=== PATIENT | female | born 1950 | race Caucasian/White ===

== ENCOUNTER 2016-08-10 13:16 | Emergency (ER) | payer OTHER, BC ==
[2016-08-10] MEDS ORDERED: IPRATROPIUM/ALBUTEROL 3 ML DEYVIAL IH ONE (13:49)
[2016-08-10 13:51] VITALS: RESP 18; O2SAT 95
[2016-08-10] MEDS ORDERED: ALBUTEROL 3 ML DEYVIAL IH ONE (14:33)
[2016-08-10] MEDS ORDERED: predniSONE 20 MG TAB PO ONE (14:33)
--- NOTE | 2016-08-10 14:37 | UCPHY ---
H & P Time Seen by Provider: 08/10/16 13:35 Patient Type: New HPI/ROS: 65-year-old female presents complaining of cough, nasal congestion fevers and chills for approximately 5 days she was seen at an outside hospital 3 days ago and given 1 dose of a steroid and sent home on a cough medicine. She states the cough medicine made her feel bad and she is not able to take it. Past Medical/Surgical History: Hypertension Hyperlipidemia Social History: Alcohol socially, denies drug use Smoking Status: Unknown if ever smoked Physical Exam: 65-year-old female alert and oriented no acute distress Alert and oriented nontoxic appearance, no acute distress afebrile Atraumatic normocephalic Extraocular muscles intact, anicteric Nares mild yellowish discharge Oropharynx mild erythema no tonsillar swelling no exudate no uvular deviation, tolerating own secretions Neck supple no lymphadenopathy Lungs clear to auscultation bilaterally, scattered wheeze Heart regular rate and rhythm Abdomen normoactive bowel sounds soft nontender Extremities no cyanosis clubbing or edema Skin no rash Constitutional: Initial Vital Signs Temperature (C) 36.6 C 08/10/16 13:44 Heart Rate 64 08/10/16 13:44 Respiratory Rate 18 08/10/16 13:44 Blood Pressure 191/87 H 08/10/16 13:44 O2 Sat (%) 95 08/10/16 13:44 O2 Delivery Mode Room Air Allergies/Adverse Reactions: codeine Allergy (Verified 08/10/16 13:36) Home Medications: Medication Instructions Recorded AZITHROMYCIN [Z-PACK] 250 mg PO DAILY #6 tab 08/10/16 Albuterol [Ventolin Hfa Inhaler] 2 puffs IH Q4 PRN #0 mdi 08/10/16 Amlodipine Besylate 08/10/16 Benzonatate [Tessalon Pearles (RX)] 100 mg PO TID PRN #30 cap 08/10/16 LORAZEPAM 08/10/16 Lovastatin 08/10/16 Metoprolol Succinate 08/10/16 PRILOSEC 08/10/16 Valsartan 08/10/16 methylPREDNISolone [Medrol Dose 1 each PO AD #1 ea 08/10/16 Frank] Medical Decision Making - Diagnostics Imaging: Chest x-ray negative for pneumonia ED Course/Re-evaluation: Patient seen and evaluated for cough cold symptoms Differential diagnosis URI, bronchitis, pneumonia Chest x-ray negative for pneumonia Impression Bronchitis with bronchospasm Plan Z-Frank Albuterol Methylprednisolone Tessalon Perles - Data Points Medications Given: Discontinued Medications Albuterol (Proventil Neb) 3 ml IH EDNOW ONE Stop: 08/10/16 14:34 Last Admin: 08/10/16 14:40 Dose: 3 ml Albuterol/Ipratropium (Duoneb) 3 ml IH EDNOW ONE Stop: 08/10/16 13:50 Last Admin: 08/10/16 13:55 Dose: 3 ml Prednisone (Prednisone) 60 mg PO EDNOW ONE Stop: 08/10/16 14:34 Last Admin: 08/10/16 14:38 Dose: 60 mg Departure - Departure Disposition: Home, Routine, Self-Care Clinical Impression: Bronchitis, Laryngitis Condition: Good Instructions: Laryngitis (ED), Acute Bronchitis (ED) Referrals: Racquel Laureano MD [Primary Care Provider] - As per Instructions Prescriptions: Albuterol [Ventolin Hfa Inhaler] 2 puffs IH Q4 PRN #0 mdi PRN Reason: Cough, Moderate AZITHROMYCIN [Z-PACK] 250 mg PO DAILY #6 tab Benzonatate [Tessalon Pearles (RX)] 100 mg PO TID PRN #30 cap PRN Reason: Cough, Moderate methylPREDNISolone [Medrol Dose Frank] 1 each PO AD #1 ea - PQRS PQRS Measurement: 134: Depression screening and followup, PRIME MD-PHQ2 (12 years and older) Over the last 2 weeks, how often have you been bothered by any of the following problems? 1. Feeling down, depressed, or hopeless? 2. Little interest or pleasure in doing things? Patient answered no to both 1 and 2 130: Documentation of medications. Reviewed all patient medications, doses, route and frequency. 226: Do you smoke? No. 47: 65 and older: Advanced care planning. Patient designates surrogate decision maker as spouse.. [Patient has advanced directive.] 51: 18 years old and older with diagnosis of COPD, spirometry performance. [Patient has no history of COPD 52: 18 years old and older with COPD and symptoms of COPD or FEV1<60% predicted prescribed a B Agonist. [Spirometry not performed; equipment not available.] 1
[2016-08-10 15:06] VITALS: BP 125/66; PULSE 76; TEMP 97.7
== END 2016-08-10 14:53 | disposition home or self-care (01) ==
LOC: CED 13:16
DX: J40 Bronchitis, not specified as acute or chronic (principal); J04.0 Acute laryngitis
CPT/HCPCS: 96372; G0463

== ENCOUNTER → 2016-08-26 | Outpatient (CLI) | payer OTHER, BC | LOC: CIMAGING 07:58 | DX: Z12.31 Encounter for screening mammogram for malignant neoplasm of breast (principal) | CPT/HCPCS: G0202 ==

== ENCOUNTER → 2017-09-18 | Outpatient (CLI) | payer OTHER, BC | LOC: CIMAGING 07:59 | PROVIDERS: ATTEND Family Medicine | DX: Z12.31 Encounter for screening mammogram for malignant neoplasm of breast (principal) ==

== ENCOUNTER → 2017-09-21 | Outpatient (CLI) | payer OTHER, BC | LOC: CIMAGING 13:53 | PROVIDERS: ATTEND Family Medicine | DX: N60.02 Solitary cyst of left breast (principal) | CPT/HCPCS: 76641-PO ==

== ENCOUNTER → 2018-10-09 | Outpatient (CLI) | payer OTHER, BC | LOC: CIMAGING 11:17 ==